=== PATIENT | male | born 1995 | race Two or more races ===

== ENCOUNTER 2020-07-14 20:07 | Emergency (ER) | payer OTHER ==
[2020-07-14 20:13] VITALS: BP 153/90
[2020-07-14] MEDS ORDERED: DIPH/PERTUSS(ACELL)/TETANUS VAC/PF 0.5 ML SYR (>=10YO) IM ONE (20:21)
[2020-07-14] MEDS ORDERED: LIDOCAINE 4% CREAM 5 GM TUBE TP ONE (20:21)
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
== END 2020-07-14 21:17 | disposition home or self-care (01) ==
LOC: ER 20:07
DX: S01.01XA Laceration without foreign body of scalp, initial encounter (principal); W20.8XXA Other cause of strike by thrown, projected or falling object, initial encounter; Y93.89 Activity, other specified; Y99.0 Civilian activity done for income or pay; F17.200 Nicotine dependence, unspecified, uncomplicated
CPT/HCPCS: 99284; 12001; J3490

== ENCOUNTER 2020-07-22 15:13 | Emergency (ER) | payer OTHER ==
[2020-07-22 15:18] VITALS: BP 123/76
--- NOTE | 2020-07-22 15:31 | ER Document Report ---
HPI - HPI Patient complains to provider of: Staple removal Time Seen by Provider: 07/22/20 15:28 Onset: Other - Days Onset/Duration: Better Pain Level: Denies Context: Patient presents for staple removal to laceration to right parietal scalp. Patient denies any complications from the injury. Associated Symptoms: None Exacerbated by: Denies Relieved by: Denies Similar symptoms previously: No Recently seen / treated by doctor: No - ROS ROS below otherwise negative: Yes Systems Reviewed and Negative: Yes All other systems reviewed and negative - NEURO Neurology: DENIES: Headache - GASTROINTESTINAL Gastrointestinal: DENIES: Patient vomiting - DERM Skin Color: Normal Skin Problems: Laceration - Stapled laceration to right parietal scalp Past Medical History - General Information source: Patient - Social History Smoking Status: Current Every Day Smoker Frequency of alcohol use: Occasional 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 Family History: Reviewed & Not Pertinent - Medical History Medical History: Negative - Immunizations Hx Diphtheria, Pertussis, Tetanus Vaccination: No Vertical Provider Document - CONSTITUTIONAL Agree With Documented VS: Yes Exam Limitations: No Limitations General Appearance: WD/WN, No Apparent Distress - HEENT HEENT: Normocephalic Notes: Stapled laceration to right parietal scalp with 3 intact joe, wound edges approximated, no surrounding erythema - NECK Neck: Normal Inspection, Supple - RESPIRATORY Respiratory: No Respiratory Distress - MUSCULOSKELETAL/EXTREMETIES Musculoskeletal/Extremeties: MAEW - NEURO Level of Consciousness: Awake, Alert, Appropriate Motor/Sensory: No Motor Deficit - DERM Integumentary: Warm, Dry, Laceration - Stapled laceration to right parietal scalp Course - Vital Signs Vital signs: Temp Pulse Resp BP Pulse Ox 98.6 F 70 18 123/76 99 07/22/20 15:17 07/22/20 15:17 07/22/20 15:17 07/22/20 15:17 07/22/20 15:17 Discharge - Discharge Clinical Impression: Removal of joe Condition: Stable Disposition: HOME, SELF-CARE Instructions: Staple Removal ([facility]) Additional Instructions: Return immediately for any new or worsening symptoms Followup with your primary care provider as needed
== END 2020-07-22 15:36 | disposition home or self-care (01) ==
LOC: ER 15:13
DX: S01.01XD Laceration without foreign body of scalp, subsequent encounter (principal); X58.XXXD Exposure to other specified factors, subsequent encounter